=== PATIENT | female | born 1965 | race Caucasian/White ===

== ENCOUNTER 2023-09-06 21:37 | Emergency (ER) | payer OTHER, SELFPAY ==
[2023-09-06 21:42] VITALS: BP 151/76; PULSE 82; RESP 18; TEMP 37.1; O2SAT 97; BMI 32.0
--- NOTE | 2023-09-06 22:42 | PC.NURSE ---
Adjusted acuity for incorrectly assigned acuity.
[2023-09-07 00:40] VITALS: BP 156/79; PULSE 75; RESP 20; TEMP 36.6; O2SAT 100
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
== END 2023-09-07 01:07 | disposition home or self-care (01) ==
PROVIDERS: Emergency Provider Emergency Medicine
DX: S60.872A Other superficial bite of left wrist, initial encounter (principal); Y04.1XXA Assault by human bite, initial encounter; Y93.F9 Activity, other caregiving; Y92.129 Unspecified place in nursing home as the place of occurrence of the external cause; Y99.0 Civilian activity done for income or pay
CPT/HCPCS: 99283; 99284